=== PATIENT | male | born 1985 | race Caucasian/White ===

== ENCOUNTER 2018-12-09 18:51 | Emergency (ER) | payer OTHER ==
[~2018-12-09] VITALS: Ht 175.3 cm; Wt 64.0 kg
[2018-12-09 19:01] VITALS: Ht 175.3 cm; Wt 64.0 kg
[2018-12-09 21:03] LABS: CALCIUM 9.1 mg/dL (8.5-10.1); CHLORIDE SERUM 101 mmol/L (98-107); CREATININE SERUM 1.2 mg/dL (0.7-1.3); GFR1 > 60 mL/min; GLUCOSE SERUM 101 mg/dL (74-106); POTASSIUM SERUM 3.5 mmol/L (3.5-5.1); SODIUM SERUM 137 mmol/L (136-145)
[2018-12-09 21:07] LABS: ALBUMIN 3.8 g/dL (3.4-5.0); ALKALINE PHOSPHATASE 85 U/L (46-116); ALT/SGPT 27 U/L (16-63); AST/SGOT 18 U/L (15-37); BILIRUBIN TOTAL 1.32 mg/dL (0.20-1.00); LIPASE 50 IU/L (73-393); TOTAL PROTEIN, SERUM 6.7 g/dL (6.4-8.2)
[2018-12-09 21:12] LABS: BASOPHIL % 0.7 % (0-2); PLATELET COUNT 157 x10^3mcL (130-400)
[2018-12-09 23:45] VITALS: BP 112/67
== END 2018-12-09 23:45 | disposition home or self-care (01) ==
LOC: ED 18:51
PROVIDERS: Emergency Medicine
DX: R11.10 Vomiting, unspecified (principal); R19.7 Diarrhea, unspecified; E86.0 Dehydration; R42 Dizziness and giddiness; M79.10 Myalgia, unspecified site; H53.8 Other visual disturbances
CPT/HCPCS: 87046; 87046-59; J1885; J2405

== ENCOUNTER 2018-12-10 09:42 | Inpatient (IN) | payer OTHER ==
[~2018-12-10] VITALS: Ht 175.3 cm; Wt 64.9 kg
--- NOTE | 2018-12-10 09:51 | NUR ---
PT TO ROOM 12 FOR EVAL, PT REPORTS HE TOOK IBUPROFEN THIS AM SIDE GUIDER AND PT REPORTED THAT HE IS ALLERGIC TO TYLENOL, UNABLE TO MEDICATE PER FEVER PROTOCOL, COOLING MEASURES INITIATED.
--- NOTE | 2018-12-10 10:07 | NUR ---
PT HERE YESTERDAY WITH ABD PAIN. HERE TODAY FOR REEVAL DUE TO BRIGHT RED BLOOD IN STOOL. HAD MULTIPLE EPISODES TODAY. STILL HAS BILATERAL LOWER QUADS. ABD SOFT AND TENDER TO PALP WITHOUT PALP MASSES PRESENT. PT ARRIVES FEBRILE. ALERT AND ORIENTED WITH NO DISTRESS NOTED. AWAITING MD ALVAREZ
--- NOTE | 2018-12-10 10:44 | NUR ---
DR DALY AT BEDSIDE FOR EVAL
[2018-12-10 11:04] LABS: CALCIUM 8.9 mg/dL (8.5-10.1); CARBON DIOXIDE 23.5 mmol/L (21-32); CHLORIDE SERUM 104 mmol/L (98-107); CREATININE SERUM 1.2 mg/dL (0.7-1.3); GFR1 > 60 mL/min; GLUCOSE SERUM 118 mg/dL (74-106); POTASSIUM SERUM 3.9 mmol/L (3.5-5.1); SODIUM SERUM 137 mmol/L (136-145)
--- NOTE | 2018-12-10 11:04 | NUR ---
PT LEFT FOR CT VIA W/C
[2018-12-10 11:16] LABS: ALKALINE PHOSPHATASE 71 U/L (46-116); ALT/SGPT 31 U/L (16-63); AST/SGOT 22 U/L (15-37); BILIRUBIN TOTAL 1.01 mg/dL (0.20-1.00); LIPASE 44 IU/L (73-393)
[2018-12-10 11:18] LABS: ALBUMIN 3.3 g/dL (3.4-5.0); TOTAL PROTEIN, SERUM 5.8 g/dL (6.4-8.2)
[2018-12-10 11:19] LABS: PLATELET COUNT 150 x10^3mcL (130-400); RED CELL DISTRIBUTION WIDTH 12.2 % (11.5-14.5)
--- NOTE | 2018-12-10 11:24 | NUR ---
PT BACK FROM CT VIA W/C
--- NOTE | 2018-12-10 11:48 | NUR ---
CRITICAL FINDINGS CALLED [facility] DEM[facility]ISHED [facility]. POSITIVE FINDINGS ON CT ABD/PELVIS. DR DALY AWARE
[2018-12-10 11:58] LABS: BAND NEUTROPHIL 7 % (0-10); BASOPHIL 0 % (0-2); MONOCYTE 3 % (0-7); SEGMENTED NEUTROPHILS 84 % (37-75); rbc morphology (normal/abnorm) NORMAL (NORMAL)
[2018-12-10 11:59] LABS: PLATELET MORPHOLOGY PLATELETS NORMAL
--- NOTE | 2018-12-10 12:33 | NUR ---
PT LEFT FOR CT VIA W/C
--- NOTE | 2018-12-10 13:52 | NUR ---
RECEIVED CRITICAL CALL FROM RADIOLOGY ONLINE. DR DALY NOTIFIED
--- NOTE | 2018-12-10 14:30 | NUR ---
NS INFUSING AT 150 ML/HR PER MD ORDERS, IV SITE PATENT WITH NO REDNESS OR SWELLING NOTED. ZOSYN INFUSING PER MD ORDERS AT 100 ML/HR, CONFIRMED WITH DR DALY THAT ANTIBIOTIC CAN BE STARTED WITH OUT BLOOD CULTURES, PER DR DALY BLOOD CULTURES WERE OBTAINED DURING VISIT LAST NIGHT AND OK TO START ANTIBIOTIC AT THIS TIME. PT EDUCATED ON MEDICATIONS PRIOR TO ADMINISTRATION. PT EDUCATED TO INFORM ME OF ANY ADVERSE REACTIONS. PT VERBALIZED UNDERSTANDING.
--- NOTE | 2018-12-10 15:30 | NUR ---
PT PREPPED FOR ADMISSION
[2018-12-10 16:04] LABS: T3 TOTAL 0.76 ng/mL
[2018-12-10 16:07] LABS: FREE T4 1.18 ng/dL (0.76-1.46); FREE THYROXINE INDEX 2.1 ug/dL (1.4-4.5); T4(THYROXINE) 6.1 ug/dL (4.7-13.3)
--- NOTE | 2018-12-10 16:20 | NUR ---
RECEIVED PT VIA WHEELCHAIR, ACCOMPANIED BY TRANSPORTER. PT A/A/O X 4, CALM, COOPERATIVE. AMBULATORY, NO GAIT OR BALANCE IMPAIRMENT NOTED WALKING FROM WHEELCHAIR TO BED. DENIES CHEST PAIN OR DISCOMFORT AT THIS TIME. NO ACUTE RESPIRATORY DISTRESS NOTED. ABD SOFT, FLAT, TENDERNESS UPON PALPATION ESPECIALLY TO BLQ, STATES 7/10 CONSTANT SHARP PAIN, RELIEVED BY PAIN MEDICATIONS ONLY AT THIS TIME, HYPERACTIVE BOWEL SOUNDS AND TYMPANY UPON PERCUSSION X 4 QUADS, C/O FOUL-SMELLING, BLOODY DIARRHEA; DIGITAL RECTAL INSPECTION REVEALED NO HEMORRHOIDS CLOSE TO THE SPHINCTER, NO BLOOD SMEARS NOTED ON GLOVE; ALSO STATES THAT HE IS UNABLE TO KEEP FOOD DOWN FOR THE LAST 36 HOURS. IV SITE LAC 20G, CDI. ORIENTED PT TO ROOM, BED CONTROLS, CALL LIGHT SYSTEM. SIDE RAILS UP X 2, BED IN LOW POSITION. WILL ENDORSE TO ITALIA ALTAMIRANO.
--- NOTE | 2018-12-10 16:23 | NUR ---
REPORT CALLED TO EVELIA AND PT TRANSFERRED TO M/S VIA W/C. VSS AND NO DISTRESS NOTED
--- NOTE | 2018-12-10 16:28 | NUR ---
PATIENT HAS ARRIVED TO FLOOR VIA WHEELCHAIR. INSTRUCTED SHIFT SUPERVISOR RN LIGHT USAGE AND SAFETY PRECAUTIONS.
[2018-12-10 16:43] LABS: MAGNESIUM 1.6 mg/dL (1.8-2.4); PHOSPHOROUS 1.1 mg/dL (2.5-4.9)
[2018-12-10 16:59] VITALS: BP 114/74
--- NOTE | 2018-12-10 18:51 | NUR ---
DR DOBSON IN TO SEE PATIENT ABOUT PLAN OF CARE AND ANTIBIOTIC COURSE. PATIENT ORDERED CLEAR LIQUID DIET PER DR DODGE. PATIENT EDUCATED FOR STOOL SAMPLE AND PATIENT VERBALIZES UNDERSTANDING. MODERATE PAIN AT THIS TIME BUT PATIENT REFUSES PRN PAIN CONTROL AT THIS TIME. WILL ENDORSE TO ONCOMING NURSE, CALL LIGHT IN REACH.
[2018-12-10 19:20] VITALS: BP 111/67
--- NOTE | 2018-12-10 19:20 | NUR ---
RECEIVED PT AWAKE ALERT AND VERBALLY RESPONSIVE.LATEST TEMP CHECKED @ 101.5F.CONTINIOUS COOLING MEASSURES IN PALCED.REQUESTING IF HE COULD HAVE SHOWER TONIGHT.WILL INFORM .MT 02/27 TO 'SQUEEZING " LIKE PAIN.MORPHINE 2 MG IVP ADMINISTERED.COMFORT MEASURES RENDERED.WILL CONTINUE TO MONITOR.
--- NOTE | 2018-12-10 19:57 | NUR ---
DR. TODD MADE AWARE REQUEST TO HAVE SHOWER TONIGHT AND ORDER GIVEN.
--- NOTE | 2018-12-10 23:59 | NUR ---
PT HAD A LOOSE BM,MUCOUSY WITH BROWNISH AND REDDISH SEDIMENTS.VOMITED X2.ZOFRAN 4MG IVP ADMINISTERED.STOOL COLLECTED ORDERED.TEMP RECHECKED @ 100.8F.WILL CONTINUE TO MONITOR.
--- NOTE | 2018-12-11 04:46 | NUR ---
PT WITH ON AND OFF SLEEPING PATTERN.BM X1 TO LOOSE MUCOUSY STOOL X1.MEDICATED WITH MORPHINE 2 MG IVP X1 FOR ABDOMINAL PAIN WITH GOOD RELIEF.NO ASE NOTED FROM FLAGYL AND LEVAQUIN IV ATB.CONTINOUS COOLING MEASURES IN PLACED.ALL NEEDS MET.WILL CONTINUE TO MONITOR.
[2018-12-11 04:54] LABS: microscopic required? YES; urine erythrocyte TRACE (NEGATIVE)
[2018-12-11 05:04] LABS: AMPHETAMINE QUAL UR NONE DETECTED (See below)
--- NOTE | 2018-12-11 05:46 | NUR ---
LATEST TEMP @ 98.5F.WILL CONTINUE TO MONITOR.
[2018-12-11 06:03] VITALS: BP 99/64
[2018-12-11 07:03] LABS: BASOPHIL % 0.6 % (0-2); RED CELL DISTRIBUTION WIDTH 13.1 % (11.5-14.5)
[2018-12-11 07:05] LABS: PLATELET COUNT 118 x10^3mcL (130-400)
--- NOTE | 2018-12-11 07:05 | NUR ---
RECEIVED PT FROM DOLL WIG MAKER. PT AWAKE, ALERT. A/OX4. DENIES HEADACHE. PT ON ROOM AIR WITH NO RESP DISTRESS NOTED. LUNGS CTA. IV ACCESS LAC, C/D/I INFUSING NS AT 125ML/HR. ACTIVE BOWEL SOUNDS NOTED. ABDOMEN SOFT, PT COMPLAINS OF ABDOMINAL PAIN 7/10 AT THIS TIME. PT REPORTS LOOSE, WATERY STOOL THIS MORNING. PT REPORTS PAIN TOLERABLE. WILL CALL FOR PAIN MED. PT AMBULATORY. PT REQUESTING SHOWER AT THIS TIME. SAFETY MEASURES IN PLACE, BED LOW AND LOCKED. CALL LIGHT WITHIN REACH.
[2018-12-11 07:22] LABS: CALCIUM 7.9 mg/dL (8.5-10.1); CARBON DIOXIDE 28.8 mmol/L (21-32); CHLORIDE SERUM 105 mmol/L (98-107); CREATININE SERUM 1.1 mg/dL (0.7-1.3); GFR1 > 60 mL/min; GLUCOSE SERUM 88 mg/dL (74-106); MAGNESIUM 1.7 mg/dL (1.8-2.4); PHOSPHOROUS 2.5 mg/dL (2.5-4.9); POTASSIUM SERUM 3.7 mmol/L (3.5-5.1); SODIUM SERUM 141 mmol/L (136-145)
[2018-12-11 09:32] VITALS: BP 107/66
--- NOTE | 2018-12-11 10:05 | NUR ---
DR PALMER AWARE PT MAGNESIUM 1.7.
--- NOTE | 2018-12-11 10:10 | NUR ---
COLLECTED STOOL SAMPLE FOR STOOL WBCS. WALKED SAMPLE TO LAB. STOOL WATERY AND BROWN.
--- NOTE | 2018-12-11 13:26 | NUR ---
PT AMBULATING IN HALLWAY FREQUENTLY. STATES PAIN IS RELIEVED WHEN HE WALKS. NO ACUTE DISTRESS OR DISCOMFORT NOTED AT THIS TIME. SAFETY MEASURES MAINTAINED.
--- NOTE | 2018-12-11 15:00 | NUR ---
DUE MEDS ADMINISTERED. (SEE EMAR) PT TOLERATED WELL. NO ACUTE DISTRESS OR DISCOMFORT NOTED AT THIS TIME. PT AMBULATING IN [place] FREQUENTLY. SAFETY MAINTAINED.
[2018-12-11 17:29] VITALS: BP 102/62
--- NOTE | 2018-12-11 17:44 | NUR ---
PATIENT LYING IN BED WITH NO ACUTE DISTRESS OR DISCOMFORT NOTED AT THIS TIME. DUE MEDS ADMINISTERED (SEE EMAR). ALL NEEDS MET AT THIS TIME. SAFETY MAINTAINED.
--- NOTE | 2018-12-11 18:22 | NUR ---
PT STABLE AT THIS TIME. ALL NEEDS MET THROUGHOUT SHIFT. WILL CONTINUE TO MONITOR AND ENDORSE CARE TO FAMILY DAY CARE PROVIDER. SAFETY MAINTAINED.
--- NOTE | 2018-12-11 19:25 | NUR ---
RECEIVED PT RESTING IN BED, NO ACUTE DISTRESS NOTED. AOX4, DENIES MCDONALD/DIZZNESS. MEDSURG PT, DENIES CP. PT CURRENTLY ON FULL LIQUID DIET, REPORTS DIARRHEA USUALLY 30 MINS AFTER EATING, REPORTS BM MAKES ABD PAIN WORSE (PINS & NEEDLES IN STOMACH). PT DENIES N/V/D. PT AFEBRILE. RESP EVEN AND UNLABORED ON RA, DENIES SOB. ABD SOFT, ROUND, ACTIVE BOWEL SOUNDS X4. PT VOIDS FREELY W/O DYSURIA. SKIN INTACT. IV SITE TO LAC, PATENT, NS @ 80ML/HR. NO REDNESS, SWELLING OR PAIN NOTED. ALL COMFORT AND SAFETY MEASURES PROVIDED OR, CALL LIGHT WITHIN REACH, BED IN LOWEST POSITION, WILL CONTINUE TO MONITOR.
[2018-12-11 20:47] VITALS: BP 117/72
[2018-12-12 05:53] VITALS: BP 106/67
[2018-12-12 06:06] LABS: BASOPHIL % 0.8 % (0-2); PLATELET COUNT 134 x10^3mcL (130-400); RED CELL DISTRIBUTION WIDTH 12.8 % (11.5-14.5)
[2018-12-12 06:25] LABS: CALCIUM 8.8 mg/dL (8.5-10.1); CARBON DIOXIDE 27.4 mmol/L (21-32); CHLORIDE SERUM 110 mmol/L (98-107); CREATININE SERUM 0.9 mg/dL (0.7-1.3); GFR1 > 60 mL/min; GLUCOSE SERUM 97 mg/dL (74-106); MAGNESIUM 1.9 mg/dL (1.8-2.4); PHOSPHOROUS 2.7 mg/dL (2.5-4.9); POTASSIUM SERUM 4.1 mmol/L (3.5-5.1); SODIUM SERUM 144 mmol/L (136-145)
--- NOTE | 2018-12-12 07:25 | NUR ---
RECEIVED PT FROM SORTER LAUNDRY ARTICLES. ASSESSED AND DOCUMENTED. DENIES PAIN THIS TIME. PT IS WALKING IN THE HALLWAY. NO DISTRESS NOTED. SAFTEY PRECAUTIONS ARE IN PLACE. WILL MONITOR.
--- NOTE | 2018-12-12 07:36 | NUR ---
ENDORSED ALL CARE TO DAYSHIFT NURSE, ALL QUESTIONS AND CONCERNS ADDRESSED. ALL COMFORT AND SAFETY MEASURES PROVIDED FOR, CALL LIGHT WITHIN REACH, BED IN LOWEST POSITION.
[2018-12-12 08:02] VITALS: BP 102/70
--- NOTE | 2018-12-12 10:20 | NUR ---
INFORMED ABOUT PT IS MRSA NARES POSITIVE. SAID SHE IS DISCHARGING PT SOON AND WILL PRESCRIBE THE MEDICINE. INFORMED CHARGE NURSE.
[2018-12-12] MEDS ORDERED: LEVAQUIN750 MG PO (10:55)
[2018-12-12] MEDS ORDERED: FLA500 PO (10:56)
[2018-12-12] MEDS ORDERED: LAC PO (10:56)
[2018-12-12] MEDS ORDERED: BACO TOP (10:58)
[2018-12-12] MEDS ORDERED: HIBICLENS118 ML TOP (10:59)
--- NOTE | 2018-12-12 13:51 | NUR ---
PT IS STABLE. DENIES PAIN. GAVE REPORT TO NURSE HARMONY.
--- NOTE | 2018-12-12 13:54 | NUR ---
RECEIVED REPORT FROM LELO ECHAVARRIA. PT IS CURRENTLY IN THE SHOWER. ALL NEEDS MET.
[2018-12-12 13:57] VITALS: BP 102/70
--- NOTE | 2018-12-12 15:22 | NUR ---
PT STABLE FOR DISCHRGE PER MD. DISCHARGE INSTRUCTIONS AND SUMMARY DISCUSSED. PT VERBALIZED UNDERSTANDING AND AGREES TO FOLLO UP WITH PCP AND GI. ID BANDS CUT. IV REMOVED AND IV POLE CLEARED. PT ESCORTED TO LOBBY VIA WHEECHAIR.
[2018-12-15 16:05] VITALS: Ht 175.3 cm; Wt 64.9 kg
== END 2018-12-12 15:19 | disposition home or self-care (01) | DRG 371 ==
LOC: ED 09:42 → MU 15:16
PROVIDERS: Emergency Medicine; ADMIT General Practice
DX: A04.5 Campylobacter enteritis (principal); N17.0 Acute kidney failure with tubular necrosis; E44.1 Mild protein-calorie malnutrition; A08.4 Viral intestinal infection, unspecified; E83.42 Hypomagnesemia; E83.39 Other disorders of phosphorus metabolism; Z68.21 Body mass index [BMI] 21.0-21.9, adult
CPT/HCPCS: 84439; 87046; 87046-59; J1956; J2270; J2405; J2543; J3490; J7030; Q0092; Q9967